=== PATIENT | male | born 1990 | race Caucasian/White ===

== ENCOUNTER → 2018-06-19 | Outpatient (CLI) | payer OTHER ==
--- NOTE | 2018-06-19 15:18 | EKG ---
FACILITY: [facility] PATIENT NAME: MELIA HENDERSON : [id number] MR: [id number] V: [id number] EXAM DATE: ORDERING PHYSICIAN: ELIF KLEIN TECHNOLOGIST: Test Reason : Blood Pressure : / mmHG Vent. Rate : 087 BPM Atrial Rate : 087 BPM P-R Int : 186 ms QRS Dur : 104 ms QT Int : 366 ms P-R-T Axes : 053 -58 029 degrees QTc Int : 440 ms Sinus rhythm Left axis Nonspecific interventricular conduction delay Decreased R wave progression anteriorly Nonspecific ST findings anterior leads Abnormal ECG No previous ECGs available Confirmed by RUTH VILLA ([id number] on 06/19/2018 4:31:58 PM Referred By: Confirmed By:RUTH VILLA
== END ==
LOC: RESP 15:05
PROVIDERS: ATTEND Nurse Practitioner Family
DX: R94.31 Abnormal electrocardiogram [ECG] [EKG] (principal)
CPT/HCPCS: 93005

== ENCOUNTER 2018-07-27 01:19 | Emergency (ER) | payer OTHER ==
[2018-07-27 01:21] VITALS: BP 147/105
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
== END 2018-07-27 01:45 ==
LOC: ER 01:34
DX: F10.920 Alcohol use, unspecified with intoxication, uncomplicated (principal); S00.81XA Abrasion of other part of head, initial encounter
CPT/HCPCS: 99281